=== PATIENT | male | born 1970 | race Caucasian/White ===

== ENCOUNTER 2018-04-08 08:41 | Inpatient (IN) ==
[2018-04-08] MEDS ORDERED: Sod Chloride 0.9% Inj 1,000 ML IV.SIG ONE (09:09)
[2018-04-08] MEDS ORDERED: Morphine Inj 4 MG/ML Vial IV.PUSH ONE ×2 (09:09→10:10)
--- NOTE | 2018-04-08 09:17 | ED ---
HPI General Chief Complaint: Abdominal Pain Stated Complaint: Abd Pain/Nausea Time Seen by Provider: 04/08/18 09:01 Source: patient Mode of arrival: ambulatory Limitations: no limitations History of Present Illness HPI narrative: She gives a history of approximately 5 days of ongoing abdominal crampy pain, nonradiating, intermittently varying in intensity, associated with nausea and some vomiting . The patient has a previous history of gout hypercholesterolemia hypertension and pancreatitis. MD complaint: abdominal pain Onset (ago): day(s) (5) Pain Consistency: intermittent Location: diffuse Severity: moderate Severity scale (1-10): 6 Quality: cramping Radiation: none Migration to: no migration Relieving factors: nothing Exacerbating factors: nothing Associated symptoms: nausea, vomiting and diarrhea Related Data Allergies Allergy/AdvReac Type Severity Reaction Status Date / Time No Known Allergies Allergy Unverified 04/08/18 09:14 Review of Systems ROS: all other systems reviewed are negative PMFSH History History Provided By: Patient Medical History Medical History Gout (Acute) HTN (hypertension) (Acute) High cholesterol (Acute) Pancreatitis (Acute) Surgical History Surgical History H/O oral surgery (Acute) History of ankle surgery (Acute) Social History Social History Smoking Status: Former smoker How Often Do You Have a Drink Containing Alcohol: 4 or more times a week Immunization History Tetanus Immunization: <5 Years Hx Influenza Vaccine This Season: No Exam Narrative Exam Narrative: GENERAL: Well-nourished, well-developed patient in no apparent distress. SKIN: Warm and dry. HEAD: Atraumatic. Normocephalic. EYES: Pupils equal and round. No scleral icterus. No injection or drainage. ENT: No nasal bleeding or discharge. Mucous membranes pink and moist. NECK: Trachea midline. No JVD. CARDIOVASCULAR: Regular rate and rhythm. no rubs or gallops RESPIRATORY: No accessory muscle use. Clear to auscultation. Breath sounds equal bilaterally. GASTROINTESTINAL: Abdomen mild ttp over ruq and epig region, nondistended. No rebound or guarding... Hyperactive bowel sounds MUSCULOSKELETAL: Extremities without clubbing, cyanosis, or edema. No obvious deformities. NEUROLOGICAL: Awake and alert. No obvious cranial nerve deficits. Motor grossly within normal limits. Five out of 5 muscle strength in the arms and legs. Normal speech. PSYCHIATRIC: Appropriate mood and affect; insight and judgment normal. Course Initial Documented Vital Signs Temperature 98.0 F 04/08/18 08:53 Pulse Rate 117 H 04/08/18 08:53 Respiratory Rate 18 04/08/18 08:53 Blood Pressure 229/152 H 04/08/18 08:53 Pulse Oximetry 97 04/08/18 08:53 Last Documented Vital Signs Temperature 98.0 F 04/08/18 08:53 Pulse Rate 106 H 04/08/18 10:09 Respiratory Rate 20 04/08/18 10:09 Blood Pressure 242/138 H 04/08/18 10:09 Pulse Oximetry 96 04/08/18 10:09 Critical Care Time Critical Care Time: Yes Total Critical Care Time: 30 Attestation: Aggregate critical care time was [-] minutes. Time to perform other separately billable procedures was not included in the critical care time. My time did not include minutes spent treating any other patients simultaneously or on activities that did not directly contribute to the patient's treatment. The services I provided to this patient were to treat and/or prevent clinically significant deterioration that could result in: [Patient severe hypertension in association with abdominal pain is suspicious for aneurysm versus dissection, these conditions required urgent evaluation-] I provided critical care services requiring my management, as noted below: Chart data review, documentation time, medication orders and management, vital sign assessments/reviewing monitor data, ordering and reviewing lab tests, ordering and interpreting/reviewing x-rays and diagnostic studies, care of the patient and discussion of the patient with the admitting physicians. Medical Decision Making MDM Narrative Medical Screen Exam Complete: Yes Emergency Medical Condition: Yes Differential Diagnosis Differential Diagnosis: Colitis versus diverticulitis versus AAA versus dissection of aorta versus pancreatitis versus hepatitis Medical Records Medical records reviewed: Yes I reviewed the patient's medical records. Lab Data Result diagrams: 04/08/18 09:15 04/08/18 09:15 Lab Results 04/08/18 04/08/18 04/08/18 Range/Units 09:15 09:15 09:20 WBC 8.6 (4.0-11.0) th/mm3 RBC 4.52 (4.50-5.90) mil/mm3 Hgb 18.1 H (13.0-17.0) gm/dL Hct 49.9 (39.0-51.0) % MCV 110.4 H (80.0-100.0) fL MCH 40.1 H (27.0-34.0) pg MCHC 36.4 H (32.0-36.0) % RDW 13.3 (11.6-17.2) % Plt Count 247 (150-450) th/mm3 MPV 8.2 (7.0-11.0) fL Prelim Diff (Auto) Slide review pending Neut % (Auto) 75.4 H (16.0-70.0) % Lymph % (Auto) 16.4 (9.0-44.0) % [place] % (Auto) 5.6 (0.0-8.0) % Eos % (Auto) 1.2 (0.0-4.0) % Baso % (Auto) 1.4 (0.0-2.0) % Neut # (Auto) 6.5 (1.8-7.7) th/mm3 Lymph # (Auto) 1.4 (1.0-4.8) th/mm3 [place] # (Auto) 0.5 (0.0-0.9) th/mm3 Eos # (Auto) 0.1 (0.0-0.4) th/mm3 Baso # (Auto) 0.1 (0.0-0.2) th/mm3 WBC Differential . Diff Scan Auto diff confirmed Differential Comment . Sodium 132 L (136-145) meq/L Potassium 3.7 (3.5-5.1) meq/L Chloride 97 L (98-107) meq/L Carbon Dioxide 23.0 (21.0-32.0) meq/L Anion Gap 12 (5-15) meq/L BUN 12 (7-18) mg/dL Creatinine 1.71 H (0.60-1.30) mg/dL Estimated GFR 43 L (>89) mL/min Random Glucose 181 H (74-106) mg/dL Calcium 9.2 (8.5-10.1) mg/dL Total Bilirubin 1.8 H (0.2-1.0) mg/dL AST 109 H (15-37) U/L ALT 80 H (12-78) U/L Alkaline Phosphatase 110 (45-117) U/L Total Creatine Kinase 608 H (39-308) U/L CK-MB (CK-2) 4.8 H (0.5-3.6) ng/mL CK-MB (CK-2) % 0.8 (0.0-4.0) % Troponin I 0.42 H (0.02-0.05) ng/mL Total Protein 8.9 H (6.4-8.2) g/dL Albumin 4.3 (3.4-5.0) g/dL Lipase 136 (73-393) U/L Urine Color Soni (Yellw/Straw) Urine Clarity Hazy H (Clear) Urine pH 5.0 (5.0-8.5) Ur Specific [place] 1.026 (1.002-1.035) Urine Protein 100 H (Neg-Trace) mg/dL Urine Glucose (UA) 50 (Negative) mg/dL Urine Ketones Negative (Negative) mg/dL Urine Occult Blood Small H (Negative) Urine Nitrate Negative (Negative) Urine Bilirubin Negative (Negative) Urine Urobilinogen 2.0 H (Less than 2) mg/dL Ur Leukocyte Esterase Negative (Negative) Urine RBC 1 (0-3) /hpf Urine WBC 3 (0-5) /hpf Ur Squamous Epith Cells 1 (0-5) /hpf Hyaline Casts 20 (0-3) /lpf Urine Mucus Many H (Occasional) /lpf Micro UA Comment Culture not ind Ur Microscopic Review Not Reportable Urine Culture Comments Culture not ind Imaging Data Radiologist's impression: Abdomen/Pelvis CT 04/08/18 09:09 CONCLUSION: 1. Numerous hepatic masses ranging in size from subcentimeter to up to 5 cm in diameter near the dome of the left side. Primary differential diagnosis is metastatic disease but cannot exclude complex cystic masses. There is also some questionable mural thickening of the greater curvature of the stomach. Further evaluation with MRI abdomen is recommended. 2. No adenopathy. No pelvic masses are identified. ECG Data EKG Prior to Arrival: No Attestation: I personally reviewed and interpreted this ECG as follows: Prior ECG tracings: not available for review Interpretation: Sinus tachycardia 103 bpm, left atrial enlargement, left ventricular hypertrophy pattern, no acute ST elevation [place] pattern, nonspecific ST-T wave changes noted Discharge Plan Discharge Disposition Patient Disposition: 30 Still Patient Discharge Condition Condition: Fair Discharge Details Diagnosis: Metastatic adenocarcinoma to liver with unknown primary site, Elevated troponin , Hypertensive emergency Physicians Team ED Provider: Reece Hu Primary Care Provider: Payton Curtis Status ED Status: With Doctor
[2018-04-08 09:36] LABS: Baso # (Auto) 0.1 th/mm3 (0.0-0.2); Baso % (Auto) 1.4 % (0.0-2.0); Eos # (Auto) 0.1 th/mm3 (0.0-0.4); Eos % (Auto) 1.2 % (0.0-4.0); Hematocrit 49.9 % (39.0-51.0); Hemoglobin 18.1 gm/dL (13.0-17.0); Lymph # (Auto) 1.4 th/mm3 (1.0-4.8); Lymph % (Auto) 16.4 % (9.0-44.0); Mean Corpuscular Hemoglobin 40.1 pg (27.0-34.0); Mean Corpuscular Volume 110.4 fL (80.0-100.0); Mean Platelet Volume 8.2 fL (7.0-11.0); Mono # (Auto) 0.5 th/mm3 (0.0-0.9); Mono % (Auto) 5.6 % (0.0-8.0); Neut # (Auto) 6.5 th/mm3 (1.8-7.7); Neut % (Auto) 75.4 % (16.0-70.0); Platelet Count 247 th/mm3 (150-450); Red Blood Count 4.52 mil/mm3 (4.50-5.90); Red Cell Distribution Width 13.3 % (11.6-17.2); White Blood Count 8.6 th/mm3 (4.0-11.0)
[2018-04-08 09:43] LABS: Mean Corpuscular HGB Conc 36.4 % (32.0-36.0)
[2018-04-08 09:45] LABS: Bilirubin,Urine Negative (Negative); Clarity,Urine Hazy (Clear); Color,Urine Amber (Yellw/Straw); Glucose,Urine (UA) 50 mg/dL (Negative); Hyaline Casts,Urine 20 /lpf (0-3); Leukocyte Esterase,Urine Negative (Negative); Mucus,Urine Many /lpf (Occasional); Nitrite,Urine Negative (Negative); Specific Gravity,Urine 1.026 (1.002-1.035); Squamous Epithelial Cell,Urine 1 /hpf (0-5)
[2018-04-08 09:54] LABS: Alanine Aminotransferase 80 U/L (12-78)
[2018-04-08 09:58] LABS: Alkaline Phosphatase 110 U/L (45-117); Creatine Kinase 608 U/L (39-308); Total Protein 8.9 g/dL (6.4-8.2); Troponin I 0.42 ng/mL (0.02-0.05)
[2018-04-08 10:10] LABS: CKMB Percent 0.8 % (0.0-4.0); Creatine Kinase MB 4.8 ng/mL (0.5-3.6)
[2018-04-08] MEDS ORDERED: Nitroglycerin Drip Premix 50 MG/250 ML BOTTLE IV.CONT PRN ×2 (10:16→10:17)
--- NOTE | 2018-04-08 10:19 | CT ---
EXAM DATE: 04/08/2018 10:01 AM EDT AGE/SEX: 48 years / Male INDICATIONS: Diffuse abdominal pain, nausea and vomiting x 5 days. CLINICAL DATA: This is the patient's initial encounter. Patient reports that signs and symptoms have been present for 4 - 6 days and indicates a pain score of 5/10. MEDICAL/SURGICAL HISTORY: Hypertension. Pancreatitis. None. RADIATION DOSE: 8.38 CTDI (mGy) COMPARISON: No prior exams available for comparison. TECHNIQUE: Multiple contiguous axial images were obtained through the abdomen. Images were obtained using multiple row detector helical technique. Using automated exposure control and adjustment of the mA and/or kV according to patient size, radiation dose was kept as low as reasonably achievable to o btain optimal diagnostic quality images. DICOM format image data is available electronically for rev iew and comparison. FINDINGS: The lung bases are clear. There are numerous masses within the liver which are suspicious for metastatic disease although compl ex cysts could have a similar appearance. There is no prior study for comparison. The spleen, adrenals, kidneys and pancreas unremarkable. No calcified gallstones or biliary ductal di latation. There is some questionable thickening of the greater curvature of the stomach although the stomach is not distended. No pelvic masses or free fluid. Colonic diverticula noted without diverticulitis. Moderate degenerative disc disease at the lumbosacral junction with bilateral bony foraminal stenosis . CONCLUSION: 1. Numerous hepatic masses ranging in size from subcentimeter to up to 5 cm in diameter near the dom e of the left side. Primary differential diagnosis is metastatic disease but cannot exclude complex c ystic masses. There is also some questionable mural thickening of the greater curvature of the stomac h. Further evaluation with MRI abdomen is recommended. 2. No adenopathy. No pelvic masses are identified. Electronically signed by: Stephan Thurston MD 04/08/2018 10:18 AM EDT
[2018-04-08 10:30] LABS: Albumin 4.3 g/dL (3.4-5.0); Anion Gap 12 meq/L (5-15); Aspartate Aminotransferase 109 U/L (15-37); Blood Urea Nitrogen 12 mg/dL (7-18); Calcium 9.2 mg/dL (8.5-10.1); Chloride 97 meq/L (98-107); Glomerular Filtration Rate 43 mL/min (>89); Glucose,Random 181 mg/dL (74-106); Lipase 136 U/L (73-393); Potassium 3.7 meq/L (3.5-5.1); Sodium 132 meq/L (136-145)
[2018-04-08] MEDS ORDERED: Labetalol HCl Inj 100 MG/20 ML Vial IV.PUSH STA (11:45)
[2018-04-08] MEDS ORDERED: Sodium Chloride 0.9% 2 ML Flush PRN IV.FLUSH (11:52)
[2018-04-08] MEDS ORDERED: *Labetalol HCl Inj 100 MG/20 ML Vial PERIprocedural Use ONLY IV.PUSH PRN (12:16)
[2018-04-08] MEDS ORDERED: hydrALAZINE HCl Inj 20 MG/ML Vial IV.PUSH PRN (12:16)
[2018-04-08] MEDS: HYDROmorphone PF Inj 2 MG/ML Vial IV.PUSH PRN ×3 (12:31→21:45)
[2018-04-08] MEDS ORDERED: *Labetalol HCl Inj 100 MG/20 ML Vial PERIprocedural Use ONLY IV.PUSH ONE (13:00)
[2018-04-08 13:34] LABS: Activated Partial Thrombo Time 27.1 sec (24.3-30.1); INR 1.1 Ratio
[2018-04-08] MEDS ORDERED: fentaNYL Citrate Inj 250 MCG/5 ML Ampul ONE (14:03)
--- NOTE | 2018-04-08 14:55 | P.RAD ---
Post Procedure Progress Note - Pre Procedure Diagnosis (1) Liver masses - Post Procedure Diagnosis (1) Liver masses - Procedure Information Procedure Date: 04/08/18 Supervising Radiologist: Dez Hameed MD Estimated blood loss (mL): 0 Anesthesia: Local, Conscious Sedation - Plan of Activity Patient to Unit: ROPU Patient Condition: Fair Additional Comments: CT guided biopsy of the liver preformed. Lesion in the right lobe targeted. Pt. tolerated the procedure well. See PACS Report for procedural detail/treatment.
--- NOTE | 2018-04-08 15:17 | CT ---
EXAM DATE: 04/08/2018 1:08 PM EDT AGE/SEX: 48 years / Male INDICATIONS: Liver biopsy for mass. CLINICAL DATA: This is the patient's initial encounter. Patient reports that signs and symptoms have been present for 1 day and indicates a pain score of 0/10. MEDICAL/SURGICAL HISTORY: Hypercholesterolemia. Hypertension. Pancreatitis. None. COMPARISON: [facility] – [place], CT ABDOMEN & PELVIS W/O CONTRAST, 04/08/2018. . SEDATION TIME (min): 30 BIOPSY SITE: . liver MEDICATION(S): 5.5mg midazolam (Versed) IV 200mcg fentanyl (Sublimaze) IV DEVICE(S): 18 gauge Temno core biopsy needle One core specimen(s) sent to the laboratory for pathologic evaluation. PROCEDURE: CT guided . liver biopsy Conscious sedation with continuous EKG and oximetry monitoring. Prior to the procedure informed consent was obtained. Any appropriate prior imaging studies were rev iewed. Using automated exposure control and adjustment of the mA and/or kV according to patient size, radiat ion dose was kept as low as reasonably achievable to obtain optimal diagnostic quality images. DICOM format image data is available electronically for review and comparison. The site was prepped in a sterile fashion. Full sterile technique was used, including cap, mask, gloria rile gloves and gown and a large sterile sheet. Hand hygiene and 2% chlorhexidine and/or betadine/al cohol prep was utilized per protocol for cutaneous antisepsis. The skin and subcutaneous tissues wer e infiltrated with local anesthetic solution. With CT guidance a suitable target was localized. Biopsy was performed using an 18-gauge core needle as above. Adequate hemostasis was obtained with compression at the puncture site. Follow-up CT scan reveals no hemorrhage. The patient tolerated the procedure well and there were no complications. The patient was returned to the Radiology Outpatient Unit in stable condition. CONCLUSION: 1. Uncomplicated CT guided biopsy. Electronically signed by: Dez Hameed MD 04/08/2018 3:16 PM EDT
[2018-04-08] MEDS: Sod Chloride 0.9% Inj 1,000 ML IV.CONT SCH (16:54)
--- NOTE | 2018-04-08 17:02 | P.HPCC ---
History of Present Illness Service: Critical Care Medicine Primary Care Physician: Payton Curtis Chief Complaint: nausea/vomiting History of Present Illness: 48yM with history of hypertension who presents with n/v/abd pain x 5 days. no hematemesis or hematochesia. in ER found to have sbp > 250. denies current chest pain, shortness of breath, fever, chills. On my evaluation he remained significantly hypertensive. I remained at bedside while he was given iv labetalol and iv hydralazine and his bp improved to 160s systolic. CT abd/ pelvis demonstrates multiple liver masses. Cr elevated. AST/ALT elevated. trop slightly elevated at 0.4. EKG no st-t-wave changes. remainder ROS unremarkable. Inpatient Certification: I certify that the inpatient services were ordered in accordance with Medicare regulations governing the order. This includes certification that hospital inpatient services are reasonable and necessary and in the case of services not specified as inpatient-only under 42 CFR 419.22(n), that they are appropriately provided as inpatient services in accordance to with the 2-midnight benchmark under 43 CFR 412.3(e) Estimated Total Length of Stay (Days): 7 Plans for Post Hospital Care: Not yet determined Review of Systems All other systems reviewed negative except as stated in HPI PMFSH - History History Provided By: Patient - Medical History Medical History: Medical History (Last Reviewed 04/08/18 @ 16:49 by Yoel Rob MD) Gout HTN (hypertension) High cholesterol Pancreatitis - Surgical History Surgical History: Surgical History (Last Reviewed 04/08/18 @ 16:49 by Yoel Rob MD) H/O oral surgery History of ankle surgery - Family History Family History: Family History (Last Updated 04/08/18 @ 16:49 by Yoel Rob MD) Other Family history non-contributory - Social History I have reviewed the patient's Social History: Yes - Tobacco History Smoking Status: Current every day smoker Tobacco Type: Cigarettes Packs Per Day: 2 - Alcohol History How Often Do You Have a Drink Containing Alcohol: 4 or more times a week - Substance Use History Substance History: No History of Abuse - Immunization History Tetanus Immunization: <5 Years Hx Influenza Vaccine This Season: No Medications and Allergies Active Medications: Active Medications Hydralazine HCl (Apresoline) 100 mg PO Q8H JABARI Last Admin: 04/08/18 12:31 Dose: 100 mg Hydralazine HCl (Apresoline Inj) 20 mg IV.PUSH Q30M PRN PRN Reason: sbp > 180 Hydromorphone HCl (Dilaudid Pf Inj) 0.5 mg IV.PUSH Q4H PRN PRN Reason: pain 8-10 or not taking po Last Admin: 04/08/18 12:31 Dose: 0.5 mg Nitroglycerin/Dextrose (Nitroglycerin Drip Premix) 50 mg in 250 mls @ 1.5 mls/ hr IV.CONT TITRATE PRN; Protocol PRN Reason: See Protocol Last Titration: 04/08/18 12:35 Dose: 0 mcg/min, 0 mls/hr Labetalol HCl (*Trandate Inj Periprocedural Use Only) 20 mg IV.PUSH Q1H PRN PRN Reason: sbp > 180, hold for HR < 60 Labetalol HCl (Trandate) 300 mg PO Q8H [facility] Last Admin: 04/08/18 13:55 Dose: Not Given Sodium Chloride (Ns Flush) 2 ml IV.FLUSH BID JABARI Sodium Chloride (Ns Flush) 2 ml IV.FLUSH PRN PRN PRN Reason: FLUSH AFTER USING IV ACCESS Allergies Allergy/AdvReac Type Severity Reaction Status Date / Time No Known Allergies Allergy Unverified 04/08/18 09:14 Home Medications Medication Instructions Recorded Confirmed Type atorvastatin 20 mg PO DAILY 04/08/18 04/08/18 History colchicine [Colcrys] 0.6 mg PO BID 04/08/18 04/08/18 History escitalopram oxalate 10 mg PO DAILY 04/08/18 04/08/18 History hydrochlorothiazide 25 mg PO DAILY 04/08/18 04/08/18 History lisinopril 20 mg PO DAILY 04/08/18 04/08/18 History Results - Labs CBC & Chem 7: 04/08/18 09:15 04/08/18 09:15 Labs: Short CBC 04/08/18 Range/Units 09:15 WBC 8.6 (4.0-11.0) th/mm3 Hgb 18.1 H (13.0-17.0) gm/dL Hct 49.9 (39.0-51.0) % Plt Count 247 (150-450) th/mm3 [facility] 04/08/18 09:15 Sodium 132 L Potassium 3.7 Chloride 97 L Carbon Dioxide 23.0 BUN 12 Creatinine 1.71 H Calcium 9.2 Cardiac Enzymes 04/08/18 Range/Units 09:15 Total Creatine Kinase 608 H (39-308) U/L CK-MB (CK-2) 4.8 H (0.5-3.6) ng/mL Troponin I 0.42 H (0.02-0.05) ng/mL Liver Function 04/08/18 Range/Units 09:15 Total Bilirubin 1.8 H (0.2-1.0) mg/dL AST 109 H (15-37) U/L ALT 80 H (12-78) U/L Alkaline Phosphatase 110 (45-117) U/L Albumin 4.3 (3.4-5.0) g/dL Urine 04/08/18 Range/Units 09:20 Urine Color Son[place] (Yellw/Straw) Urine Clarity Hazy H (Clear) Urine pH 5.0 (5.0-8.5) Ur Specific [place] 1.026 (1.002-1.035) Urine Protein 100 H (Neg-Trace) mg/dL Urine Glucose (UA) 50 (Negative) mg/dL - Imaging Impressions Liver Biopsy CT 04/08/18 00:[address] CONCLUSION: [address] Uncom[address] CT guided biopsy. Abdomen/Pelvis CT 04/08/18 09:09 CONCLUSION: 1. Numerous hepatic masses ranging in size from subcentimeter to up to 5 cm in diameter near the dome of the left side. Primary differential diagnosis is metastatic disease but cannot exclude complex cystic masses. There is also some questionable mural thickening of the greater curvature of the stomach. Further evaluation with MRI abdomen is recommended. 2. No adenopathy. No pelvic masses are identified. Exam Vital signs: Vital Signs 04/08/18 08:53 04/08/18 09:14 04/08/18 10:09 Temperature 36.7 C Pulse Rate 117 H 108 H 106 H Respiratory Rate 18 20 20 Blood Pressure 229/152 H 253/156 H 242/138 H Pulse Oximetry 97 96 96 04/08/18 11:41 04/08/18 11:55 04/08/18 12:00 Temperature Pulse Rate 91 H 77 78 Respiratory Rate 20 19 20 Blood Pressure 227/127 H 204/114 H 180/18 H Pulse Oximetry 96 96 95 04/08/18 12:07 04/08/18 12:33 04/08/18 13:06 Temperature Pulse Rate 78 78 73 Respiratory Rate 20 18 16 Blood Pressure 162/90 H 121/73 151/91 H Pulse Oximetry 97 95 95 04/08/18 14:22 04/08/18 15:00 04/08/18 16:00 Temperature 36.7 C Pulse Rate 82 74 Respiratory Rate 20 18 Blood Pressure 111/82 Pulse Oximetry 96 04/08/18 16:43 Temperature Pulse Rate 70 Respiratory Rate Blood Pressure Pulse Oximetry Intake & Output 04/07/18 04/08/18 04/08/18 18:59 06:59 18:59 Intake Total 1100 / 1100 Balance 1100 / 1100 Weight 96.162 kg Intake: IV 1000 / 1000 NS Inj 1,000 ML @ Wide Open IV. 1000 / 1000 SIG BOLUS ONE Rx#:[id number] Oral 100 / 100 Narrative: gen: middle-aged male, lying in bed, no acute distress. heent: nc. at. perrl. mmm. neck: no jvd. trachea midline. chest: unlabored. room air. equal chest rise. abd: soft, tender in the RUQ, nondistended. no guarding. extr: no edema. distal pulses 2+. neuro: RASS 0. GCS 15. follows commands. no focal deficits. Caprini VTE Risk Assessment Caprini VTE Risk Assessment: Moderate/High Risk (score >= 2) Caprini Risk Assessment Model: Point Value = 1 Point Value = 2 Point Value = 3 Point Value = 5 Age 41-60 Minor surgery BMI > 25 kg/m2 Swollen legs Varicose veins or History of unexplained or recurrent spontaneous Oral contraceptives or hormone replacement Sepsis (< 1 month) Serious lung disease, including pneumonia (< 1 month) Abnormal pulmonary function Acute myocardial infarction Congestive heart failure (< 1 month) History of inflammatory bowel disease Medical patient at bed rest Age 61-74 Arthroscopic surgery Major open surgery (> 45 min) Laparoscopic surgery (> 45 min) Malignancy Confined to bed (> 72 hours) Immobilizing plaster cast Central venous access Age >= 75 History of VTE Family history of VTE Factor V Leiden Prothrombin [id number] Lupus anticoagulant Anticardiolipin antibodies Elevated serum homocysteine Heparin-induced thrombocytopenia Other congenital or acquired thrombophilia Stroke (< 1 month) Elective arthroplasty Hip, pelvis, or leg fracture Acute spinal cord injury (< 1 month) Prophylaxis Regimen: Total Risk Factor Score Risk Level Prophylaxis Regimen 0-1 Low Early ambulation 2 Moderate Order ONE of the following: *Sequential Compression Device (SCD) *Heparin 5000 units SQ BID 3-4 Higher Order ONE of the following medications: *Heparin 5000 units SQ TID *Enoxaparin/Lovenox 40 mg SQ daily (WT < 150 kg, CrCl > 30 mL/min) *Enoxaparin/Lovenox 30 mg SQ daily (WT < 150 kg, CrCl > 10-29 mL/min) *Enoxaparin/Lovenox 30 mg SQ BID (WT < 150 kg, CrCl > 30 mL/min) AND/OR *Sequential Compression Device (SCD) 5 or more Highest Order ONE of the following medications: *Heparin 5000 units SQ TID (Preferred with Epidurals) *Enoxaparin/Lovenox 40 mg SQ daily (WT < 150 kg, CrCl > 30 mL/min) *Enoxaparin/Lovenox 30 mg SQ daily (WT < 150 kg, CrCl > 10-29 mL/min) *Enoxaparin/Lovenox 30 mg SQ BID (WT < 150 kg, CrCl > 30 mL/min) AND *Sequential Compression Device (SCD) Assessment and Plan - Assessment and Plan Plan: Assessment: 48yM with new diagnosis of liver masses and hypertensive urgency. admit to step-down unit for close blood pressure control. have discussed with radiology and will pursue liver biopsy. Hypertensive Urgency start labetalol 300mg po q8h start hydralazine 100mg po q8h prn labetalol and hydralazine iv goal sbp < 180 Type II NSTEMI secondary to demand ischemia Elevated troponin - no symptoms concerning for ACS - no heparinization or ASA given plan for liver biopsy - cardiology consult - will likely need outpatient stress test - risk factors: tob use, HTN Liver masses - CT guided biopsy - if comes back malignant, will need staging CT chest/abd/pelvis - will hold on oncology consult until biopsy returns. likely can be outpatient work-up. Acute kidney injury - likely secondary to hypertensive urgency and may be related to dehydration from poor po intake - ns @ 84 cc/hr - daily bmp Dehydration - mivf Nausea/Vomiting - secondary to liver capsule streching - prn zofran Abdominal pain - secondary to liver masses - dilaudid 0.5 mg iv q4h prn Tobacco abuse - counseled on cessation. consult hospitalist to assume care.
--- NOTE | 2018-04-08 17:40 | ECG ---
Date Performed: 04/08/2018 Time Performed: 09:29:14 PTAGE: 48 years EKG: SINUS TACHYCARDIA POSSIBLE LEFT ATRIAL ENLARGEMENT LEFT VENTRICULAR HYPERTROPHY NONSPECIFIC ST & T-WAVE ABNORMALITY ABNORMAL ECG NO PREVIOUS TRACING DOCTOR: Josh Engel Interpretating Date/Time 04/08/2018 18:13:20
--- NOTE | 2018-04-08 19:58 | MB ---
cc: Tc Lynne MD DATE: 04/08/2018 REASON FOR CONSULTATION: Evaluation of elevated troponin. HISTORY OF PRESENT ILLNESS: Hardeep Buchanan is a 48-year-old man who says he has had hypertension for 15 years. He admits that he takes his medicines erratically. He presented to his primary care physician last week for a tooth infection. He has not seen a dentist yet. He got put on antibiotic and never started it. Blood pressure was very high when he went there, but he was taking Naprosyn and they thought that might have something to do with it. He comes in now for crampy abdominal pain, difficulty keeping any food down with nausea and vomiting for the past 5 days[address] He got a CT scan showing significant abnormal liver findings on a liver biopsy done today. His troponin is mildly elevated. He does have some intermittent chest discomfort, like a tightness that lasted for 10 seconds at a time, nothing longer. He has noticed some slightly increased shortness of breath over the last couple of months. Nothing acute. I really cannot elicit any symptoms that sound like a myocardial infarction. He has not vomited any blood. He has been treated so far with labetalol and hydralazine to bring his blood pressure down. PAST MEDICAL HISTORY: Includes gout, hypercholesterolemia, hypertension, pancreatitis. PAST SURGICAL HISTORY: Includes ankle surgery and oral surgery. SOCIAL HISTORY: Notable for longstanding smoking greater than a pack a day. He drinks alcohol, moderate to heavy as well. FAMILY HISTORY: Significant in that his father had bypass surgery. Mother was unhealthy, but cannot remember specifics on her illness. REVIEW OF SYSTEMS: Otherwise negative. PHYSICAL EXAMINATION: GENERAL: Well-developed, well-nourished man, does not appear to be in acute distress. He is somewhat mar[place] in complexion, vitals are charted. He was high as 229/152. HEENT: Unremarkable. NECK: Negative for bruits. No JVD. CHEST: Lungs are clear to auscultation. CARDIOVASCULAR: S1, S2, regular rate and rhythm. I could not appreciate murmur or gallop. ABDOMEN: Shows some mild right upper quadrant tenderness. EXTREMITIES: No clubbing, cyanosis or edema. Pulses are intact. EKG shows sinus rhythm with left ventricular hypertrophy, nonspecific T-wave abnormality. CT scan is markedly abnormal with liver masses as described above. LABORATORY DATA: Labs are abnormal. Hematocrit is 49.9 with MCV elevated at 110. BUN is 12 with a creatinine elevated at 1.71. His liver tests are elevated, troponins 0.42. Bilirubin is 1.8. Alkaline phosphatase 110, AST 109, ALT 80. IMPRESSION: 1. Hypertensive crisis has been controlled now with labetalol and hydralazine. Hypertension is longstanding and poorly controlled. The patient has been noncompliant with medication treatment. 2. Elevated troponin. He has got a family history. He smokes and has hypertension, but really has no symptoms to suggest acute coronary syndrome. Suspect elevated troponin may be from his left ventricular hypertrophy and hypertension. I would not diagnose this as an infarct at this point. 3. Liver masses. Workup underway for possible metastatic cancer. RECOMMENDATIONS: We will order a 2-D echo Doppler study. We will hold off adding an ENRIKE or ARB because of elevated creatinine. Amlodipine might be something we can add if he needs it beyond what he is on now. Further therapy to be determined. MD FERNIE Mcarthur/miguelangel , 05:44 PM , 05:54 PM
[2018-04-08] MEDS: Heparin - SQ 10,000 UNITS/ML Vial SQ SCH (21:45)
[2018-04-08] MEDS: Sodium Chloride 0.9% 2 ML Flush BID IV.FLUSH SCH (21:54)
[2018-04-09] MEDS: HYDROmorphone PF Inj 2 MG/ML Vial IV.PUSH PRN ×4 (03:04→21:05)
[2018-04-09] MEDS ORDERED: Dextrose 50% in Water 50 ML Vial IV.PUSH PRN (03:13)
[2018-04-09 04:15] LABS: Baso % (Auto) 0.8 % (0.0-2.0); Eos # (Auto) 0.1 th/mm3 (0.0-0.4); Eos % (Auto) 1.5 % (0.0-4.0); Hematocrit 40.9 % (39.0-51.0); Hemoglobin 14.5 gm/dL (13.0-17.0); Lymph # (Auto) 1.6 th/mm3 (1.0-4.8); Lymph % (Auto) 26.3 % (9.0-44.0); Mean Corpuscular HGB Conc 35.5 % (32.0-36.0); Mean Corpuscular Hemoglobin 40.2 pg (27.0-34.0); Mean Corpuscular Volume 113.4 fL (80.0-100.0); Mean Platelet Volume 8.2 fL (7.0-11.0); Mono # (Auto) 0.3 th/mm3 (0.0-0.9); Mono % (Auto) 5.3 % (0.0-8.0); Neut % (Auto) 66.1 % (16.0-70.0); Platelet Count 174 th/mm3 (150-450); Red Blood Count 3.61 mil/mm3 (4.50-5.90); Red Cell Distribution Width 13.4 % (11.6-17.2)
[2018-04-09 04:42] LABS: Alanine Aminotransferase 56 U/L (12-78); Albumin 3.4 g/dL (3.4-5.0); Alkaline Phosphatase 87 U/L (45-117); Anion Gap 12 meq/L (5-15); Aspartate Aminotransferase 62 U/L (15-37); Blood Urea Nitrogen 11 mg/dL (7-18); Carbon Dioxide 23.8 meq/L (21.0-32.0); Chloride 97 meq/L (98-107); Glomerular Filtration Rate 48 mL/min (>89); Glucose,Random 120 mg/dL (74-106); Magnesium 1.3 mg/dL (1.5-2.5); Phosphorus 2.9 mg/dL (2.5-4.9); Potassium 3.1 meq/L (3.5-5.1); Sodium 133 meq/L (136-145); Total Protein 7.2 g/dL (6.4-8.2); Troponin I 0.27 ng/mL (0.02-0.05)
[2018-04-09] MEDS: Sod Chloride 0.9% Inj 1,000 ML IV.CONT SCH ×3 (05:05→21:11)
[2018-04-09] MEDS: Heparin - SQ 10,000 UNITS/ML Vial SQ SCH ×3 (05:25→21:07)
[2018-04-09] MEDS: Sodium Chloride 0.9% 2 ML Flush BID IV.FLUSH SCH ×2 (08:58→21:07)
[2018-04-09] MEDS: Insulin NovoLOG Aspart Correctional Sugar Inj SQ SCH ×4 (08:59→21:06)
[2018-04-09] MEDS ORDERED: predniSONE 20 MG Tablet PO SCH (09:00)
--- NOTE | 2018-04-09 09:35 | P.PNCA ---
Subjective Interval history: No angina. RUQ pain Medications and Allergies Active Medications: Active Medications Albuterol (Duoneb Neb (Prn)) 1 ampul NEB Q2HR NEB PRN PRN Reason: WHEEZING Amlodipine Besylate (Norvasc) 5 mg PO DAILY [facility] Colchicine (Colcrys) 0.6 mg PO BID [facility] Dextrose (D50w Vial) 50 ml IV.PUSH UNSCH PRN PRN Reason: PER HYPOGLYCEMIA PROTOCOL Glucagon (Glucagon Inj) 1 mg OTHER PRN PRN PRN Reason: for Hypoglycemia Protocol Heparin Sodium (Porcine) (Heparin Inj) 5,000 units SQ Q8HR [facility] Last Admin: 04/09/18 05:25 Dose: 5,000 units Hydralazine HCl (Apresoline) 100 mg PO Q8H [facility] Last Admin: 04/09/18 05:25 Dose: 100 mg Hydralazine HCl (Apresoline Inj) 20 mg IV.PUSH Q30M PRN PRN Reason: sbp > 180 Hydromorphone HCl (Dilaudid Pf Inj) 0.5 mg IV.PUSH Q4H PRN PRN Reason: pain 8-10 or not taking po Last Admin: 04/09/18 07:26 Dose: 0.5 mg Nitroglycerin/Dextrose (Nitroglycerin Drip Premix) 50 mg in 250 mls @ 1.5 mls/ hr IV.CONT TITRATE PRN; Protocol PRN Reason: See Protocol Last Titration: 04/08/18 12:35 Dose: 0 mcg/min, 0 mls/hr Sodium Chloride (Ns Inj) 1,000 mls @ 84 mls/hr IV.CONT .[id number] [facility] Last Admin: 04/09/18 05:05 Dose: 84 mls/hr Magnesium Sulfate/Dextrose (Magnesium Sulfate 1 Gm/D5w 100 Ml Premix) 100 mls @ 100 mls/hr IV.SIG Q1H [facility] Stop: 04/09/18 11:59 Insulin Aspart (Novolog Insulin Correctional Sugar Inj) 0 unit SQ ACHS [facility]; Protocol Last Admin: 04/09/18 08:59 Dose: Not Given Labetalol HCl (*Trandate Inj Periprocedural Use Only) 20 mg IV.PUSH Q1H PRN PRN Reason: sbp > 180, hold for HR < 60 Labetalol HCl (Trandate) 300 mg PO Q8H [facility] Last Admin: 04/09/18 05:25 Dose: 300 mg Ondansetron HCl (Zofran Inj) 4 mg IV.PUSH Q6H PRN PRN Reason: NAUSEA OR VOMITING Prednisone (Deltasone) 20 mg PO DAILY [facility] Last Admin: 04/09/18 08:58 Dose: 20 mg Sodium Chloride (Ns Flush) 2 ml IV.FLUSH BID [facility] Last Admin: 04/09/18 08:58 Dose: Not Given Sodium Chloride (Ns Flush) 2 ml IV.FLUSH PRN PRN PRN Reason: FLUSH AFTER USING IV ACCESS Allergies Allergy/AdvReac Type Severity Reaction Status Date / Time No Known Allergies Allergy Unverified 04/08/18 09:14 Home Medications Medication Instructions Recorded Confirmed Type atorvastatin 20 mg PO DAILY 04/08/18 04/08/18 History colchicine [Colcrys] 0.6 mg PO BID 04/08/18 04/08/18 History escitalopram oxalate 10 mg PO DAILY 04/08/18 04/08/18 History hydrochlorothiazide 25 mg PO DAILY 04/08/18 04/08/18 History lisinopril 20 mg PO DAILY 04/08/18 04/08/18 History Physical Exam Vital signs: Vital Signs 04/08/18 10:09 04/08/18 11:41 04/08/18 11:55 Temperature Pulse Rate 106 H 91 H 77 Respiratory Rate 20 20 19 Blood Pressure 242/138 H 227/127 H 204/114 H Pulse Oximetry 96 96 96 04/08/18 12:00 04/08/18 12:07 04/08/18 12:33 Temperature Pulse Rate 78 78 78 Respiratory Rate 20 20 18 Blood Pressure 180/18 H 162/90 H 121/73 Pulse Oximetry 95 97 95 04/08/18 13:06 04/08/18 14:22 04/08/18 15:00 Temperature 98.1 F Pulse Rate 73 82 Respiratory Rate 16 20 18 Blood Pressure 151/91 H 111/82 Pulse Oximetry 95 96 04/08/18 16:00 04/08/18 16:43 04/08/18 17:13 Temperature Pulse Rate 74 70 68 Respiratory Rate Blood Pressure Pulse Oximetry 04/08/18 19:00 04/08/18 20:00 04/08/18 21:00 Temperature 97.9 F Pulse Rate 74 70 75 Respiratory Rate 16 Blood Pressure 166/96 H Pulse Oximetry 95 04/08/18 22:00 04/08/18 23:00 04/09/18 00:00 Temperature 98 F Pulse Rate 79 84 71 Respiratory Rate 16 Blood Pressure 130/74 Pulse Oximetry 95 04/09/18 01:00 04/09/18 02:00 04/09/18 03:00 Temperature 97.9 F Pulse Rate 76 76 84 Respiratory Rate 16 Blood Pressure 161/83 H Pulse Oximetry 95 04/09/18 03:10 04/09/18 04:00 04/09/18 05:00 Temperature Pulse Rate 82 82 Respiratory Rate Blood Pressure Pulse Oximetry 96 04/09/18 06:00 04/09/18 07:00 04/09/18 08:00 Temperature 97.8 F Pulse Rate 81 78 77 Respiratory Rate 16 Blood Pressure 141/80 H Pulse Oximetry Intake & Output 04/08/18 04/09/18 04/09/18 18:59 06:59 18:59 Intake Total 1100 / 1100 1720 / 1720 Output Total 125 / 125 Balance 1100 / 1100 1595 / 1595 Weight 96.162 kg 99.5 kg Intake: IV 1000 / 1000 1000 / 1000 NS Inj 1,000 ML @ 84 mls/hr IV. 1000 / 1000 CONT .[id number] [facility] Rx#:[id number] NS Inj 1,000 ML @ Wide Open IV. 1000 / 1000 SIG BOLUS ONE Rx#:[id number] Oral 100 / 100 720 / 720 Output: Urine 125 / 125 Other: # Voids 3 - Constitutional no acute distress - Routine HEENT Exam Head: Present: normocephalic, atraumatic - Routine Neck Exam Absent: JVD - Routine Respiratory Exam Present: CTA bilaterally. Absent: accessory muscle use - Routine Cardiovascular Exam Present: RRR, S1, S2 - Routine Abdominal Exam Comments: mild RUQ tenderness - Routine Extremities Exam Absent: cyanosis, clubbing, edema Results 04/09/18 02:52 04/09/18 02:52 Cardiac Enzymes 04/08/18 04/08/18 04/09/18 Range/Units 09:15 18:04 02:52 AST 109 H 62 H (15-37) U/L CK-MB (CK-2) 4.8 H (0.5-3.6) ng/mL Troponin I 0.42 H 0.33 H 0.27 H (0.02-0.05) ng/mL Coagulation 04/08/18 Range/Units 12:45 PT 11.0 (9.8-11.6) sec APTT 27.1 (24.3-30.1) sec CBC 04/08/18 04/09/18 Range/Units 09:15 02:52 WBC 8.6 6.0 (4.0-11.0) th/mm3 RBC 4.52 3.61 L (4.50-5.90) mil/mm3 Hgb 18.1 H 14.5 D (13.0-17.0) gm/dL Hct 49.9 40.9 (39.0-51.0) % Plt Count 247 174 (150-450) th/mm3 Neut # (Auto) 6.5 4.0 (1.8-7.7) th/mm3 Lymph # (Auto) 1.4 1.6 (1.0-4.8) th/mm3 [place] # (Auto) 0.5 0.3 (0.0-0.9) th/mm3 Eos # (Auto) 0.1 0.1 (0.0-0.4) th/mm3 Baso # (Auto) 0.1 0.0 (0.0-0.2) th/mm3 Comprehensive Metabolic Panel 04/08/18 04/09/18 Range/Units 09:15 02:52 Sodium 132 L 133 L (136-145) meq/L Potassium 3.7 3.1 L (3.5-5.1) meq/L Chloride 97 L 97 L (98-107) meq/L Carbon Dioxide 23.0 23.8 (21.0-32.0) meq/L BUN 12 11 (7-18) mg/dL Creatinine 1.71 H 1.56 H (0.60-1.30) mg/dL Calcium 9.2 8.0 L D (8.5-10.1) mg/dL AST 109 H 62 H (15-37) U/L ALT 80 H 56 (12-78) U/L Alkaline Phosphatase 110 87 (45-117) U/L Total Protein 8.9 H 7.2 D (6.4-8.2) g/dL Albumin 4.3 3.4 D (3.4-5.0) g/dL Intake and Output 04/08/18 04/09/18 04/09/18 22:59 06:59 14:59 Intake Total 100 / 100 1720 / 1720 Output Total 125 / 125 Balance 100 / 100 1595 / 1595 Intake: IV 1000 / 1000 NS Inj 1,000 ML @ 84 mls/hr IV. 1000 / 1000 CONT .[id number] [facility] Rx#:[id number] Oral 100 / 100 720 / 720 Output: Urine 125 / 125 Other: # Voids 3 Weight 99.5 kg - Imaging and Cardiology Imaging: Impressions Liver Biopsy CT 04/08/18 00:00 CONCLUSION: 1. Uncomplicated CT guided biopsy. Abdomen/Pelvis CT 04/08/18 09:09 CONCLUSION: 1. Numerous hepatic masses ranging in size from subcentimeter to up to 5 cm in diameter near the dome of the left side. Primary differential diagnosis is metastatic disease but cannot exclude complex cystic masses. There is also some questionable mural thickening of the greater curvature of the stomach. Further evaluation with MRI abdomen is recommended. 2. No adenopathy. No pelvic masses are identified. Assessment and Plan - Assessment (1) Elevated troponin Code(s): R74.8 - Abnormal levels of other serum enzymes Status: Acute (2) Hypertensive emergency Code(s): I16.1 - Hypertensive emergency Status: Acute (3) Liver masses Code(s): R16.0 - Hepatomegaly, not elsewhere classified Status: Acute - Plan BP improved but required IV hydralazine this AM so I am adding PO amlodipine. Increased troponin prob secondary to HTN and is coming down. Await liver biopsy results
[2018-04-09] MEDS: Mag Sulf 1 gm/100 ml Premix 100 ML IV.SIG SCH ×2 (10:16→11:19)
[2018-04-09] MEDS: amLODIPine 5 MG Tablet PO SCH (10:24)
--- NOTE | 2018-04-09 12:04 | P.PN ---
Subjective Interval history: Nursing denies any deterioration since last night. Patient says he was able to tolerate breakfast this morning without vomiting. Still has abdominal pain, says that the Dilaudid will help at times and then it will not. Has a flareup of gout on his right second toe which he says is not unusual for him. Physical Exam Vital signs: Vital Signs 04/08/18 12:07 04/08/18 12:33 04/08/18 13:06 Temperature Pulse Rate 78 78 73 Respiratory Rate 20 18 16 Blood Pressure 162/90 H 121/73 151/91 H Pulse Oximetry 97 95 95 04/08/18 14:22 04/08/18 15:00 04/08/18 16:00 Temperature 98.1 F Pulse Rate 82 74 Respiratory Rate 20 18 Blood Pressure 111/82 Pulse Oximetry 96 04/08/18 16:43 04/08/18 17:13 04/08/18 19:00 Temperature 97.9 F Pulse Rate 70 68 74 Respiratory Rate 16 Blood Pressure 166/96 H Pulse Oximetry 95 04/08/18 20:00 04/08/18 21:00 04/08/18 22:00 Temperature Pulse Rate 70 75 79 Respiratory Rate Blood Pressure Pulse Oximetry 04/08/18 23:00 04/09/18 00:00 04/09/18 01:00 Temperature 98 F Pulse Rate 84 71 76 Respiratory Rate 16 Blood Pressure 130/74 Pulse Oximetry 95 04/09/18 02:00 04/09/18 03:00 04/09/18 03:10 Temperature 97.9 F Pulse Rate 76 84 Respiratory Rate 16 Blood Pressure 161/83 H Pulse Oximetry 95 96 04/09/18 04:00 04/09/18 05:00 04/09/18 06:00 Temperature Pulse Rate 82 82 81 Respiratory Rate Blood Pressure Pulse Oximetry 04/09/18 07:00 04/09/18 08:00 04/09/18 09:00 Temperature 97.8 F Pulse Rate 78 77 68 Respiratory Rate 16 Blood Pressure 141/80 H Pulse Oximetry 95 04/09/18 10:00 Temperature Pulse Rate 68 Respiratory Rate Blood Pressure Pulse Oximetry Intake & Output 04/08/18 04/09/18 04/09/18 18:59 06:59 18:59 Intake Total 1100 / 1100 1720 / 1720 100 / 100 Output Total 125 / 125 Balance 1100 / 1100 1595 / 1595 100 / 100 Weight 96.162 kg 99.5 kg Intake: IV 1000 / 1000 1000 / 1000 100 / 100 NS Inj 1,000 ML @ 84 mls/hr IV. 1000 / 1000 CONT .[id number] [facility] Rx#:[id number] Magnesium Sulfate 1 gm/D5W 100 100 / 100 ml Premix 100 ML @ 100 mls/hr IV.SIG Q1H [facility] Rx#:[id number] NS Inj 1,000 ML @ Wide Open IV. 1000 / 1000 SIG BOLUS ONE Rx#:[id number] Oral 100 / 100 720 / 720 Output: Urine 125 / 125 Other: # Voids 3 Narrative: Heart sounds regular rate rhythm, no murmurs Clear lungs bilaterally, unlabored breathing Abdomen is soft, mildly tender to palpation diffusely, nondistended Right second toe is erythematous Results - Labs CBC & Chem 7: 04/09/18 02:52 04/09/18 02:52 Laboratory Results - last 24 hr 04/08/18 04/08/18 04/09/18 12:45 18:04 02:52 WBC RBC Hgb Hct MCV MCH MCHC RDW Plt Count MPV Neut % (Auto) Lymph % (Auto) [place] % (Auto) Eos % (Auto) Baso % (Auto) Neut # (Auto) Lymph # (Auto) [place] # (Auto) Eos # (Auto) Baso # (Auto) WBC Differential Differential Comment PT 11.0 INR 1.1 APTT 27.1 Sodium 133 L Potassium 3.1 L Chloride 97 L Carbon Dioxide 23.8 Anion Gap 12 BUN 11 Creatinine 1.56 H Estimated GFR 48 L POC Glucose Random Glucose 120 H Calcium 8.0 L D Phosphorus 2.9 Magnesium 1.3 L Total Bilirubin 1.1 H AST 62 H ALT 56 Alkaline Phosphatase 87 Troponin I 0.33 H 0.27 H Total Protein 7.2 D Albumin 3.4 D 04/09/18 04/09/18 04/09/18 02:52 07:50 09:55 WBC 6.0 RBC 3.61 L Hgb 14.5 D Hct 40.9 MCV 113.4 H MCH 40.2 H MCHC 35.5 RDW 13.4 Plt Count 174 MPV 8.2 Neut % (Auto) 66.1 Lymph % (Auto) 26.3 [place] % (Auto) 5.3 Eos % (Auto) 1.5 Baso % (Auto) 0.8 Neut # (Auto) 4.0 Lymph # (Auto) 1.6 [place] # (Auto) 0.3 Eos # (Auto) 0.1 Baso # (Auto) 0.0 WBC Differential . Differential Comment Auto diff final PT INR APTT Sodium Potassium Chloride Carbon Dioxide Anion Gap BUN Creatinine Estimated GFR POC Glucose 143 H Random Glucose Calcium Phosphorus Magnesium Total Bilirubin AST ALT Alkaline Phosphatase Troponin I 0.26 H Total Protein Albumin 04/09/18 11:10 WBC RBC Hgb Hct MCV MCH MCHC RDW Plt Count MPV Neut % (Auto) Lymph % (Auto) [place] % (Auto) Eos % (Auto) Baso % (Auto) Neut # (Auto) Lymph # (Auto) [place] # (Auto) Eos # (Auto) Baso # (Auto) WBC Differential Differential Comment PT INR APTT Sodium Potassium Chloride Carbon Dioxide Anion Gap BUN Creatinine Estimated GFR POC Glucose 228 H Random Glucose Calcium Phosphorus Magnesium Total Bilirubin AST ALT Alkaline Phosphatase Troponin I Total Protein Albumin - Imaging Impressions Liver Biopsy CT 04/08/18 00:00 CONCLUSION: 1. Uncomplicated CT guided biopsy. Assessment and Plan - Plan 48yM admitted with nausea vomiting abdominal pain possiblehypertensive emergency Hypertensive Urgency labetalol 300mg po q8h hydralazine 100mg po q8h Amlodipine added by cardiology Type II NSTEMI secondary to demand ischemia Elevated troponin - no symptoms concerning for ACS - no heparinization or ASA given plan for liver biopsy -Cardiology following Liver masses - CT guided biopsy performed yesterday, possible results in today versus tomorrow - if comes back malignant, will need staging CT chest/abd/pelvis - will hold on oncology consult until biopsy returns. likely can be outpatient work-up. Acute kidney injury Dehydration -improving Acute gout -Started on colchicine Nausea/Vomiting -Resolved Abdominal pain - secondary to liver masses -We will transition over from IV pain medication to oral today Tobacco abuse - counseled on cessation. Discharge Planning: STABLE FOR DC
[2018-04-10 03:14] VITALS: O2SAT 97
[2018-04-10] MEDS: HYDROmorphone PF Inj 2 MG/ML Vial IV.PUSH PRN (04:06)
[2018-04-10 05:01] LABS: Baso % (Auto) 0.2 % (0.0-2.0); Eos # (Auto) 0.1 th/mm3 (0.0-0.4); Eos % (Auto) 0.9 % (0.0-4.0); Hematocrit 38.2 % (39.0-51.0); Hemoglobin 13.6 gm/dL (13.0-17.0); Lymph # (Auto) 1.8 th/mm3 (1.0-4.8); Lymph % (Auto) 21.7 % (9.0-44.0); Mean Corpuscular HGB Conc 35.5 % (32.0-36.0); Mean Corpuscular Hemoglobin 40.3 pg (27.0-34.0); Mean Corpuscular Volume 113.4 fL (80.0-100.0); Mean Platelet Volume 8.5 fL (7.0-11.0); Mono # (Auto) 0.4 th/mm3 (0.0-0.9); Mono % (Auto) 4.8 % (0.0-8.0); Neut # (Auto) 5.9 th/mm3 (1.8-7.7); Neut % (Auto) 72.4 % (16.0-70.0); Platelet Count 160 th/mm3 (150-450); Red Blood Count 3.37 mil/mm3 (4.50-5.90); Red Cell Distribution Width 13.2 % (11.6-17.2); White Blood Count 8.1 th/mm3 (4.0-11.0)
[2018-04-10] MEDS: Sod Chloride 0.9% Inj 1,000 ML IV.CONT SCH (05:20)
[2018-04-10 05:43] LABS: Alanine Aminotransferase 39 U/L (12-78); Albumin 2.9 g/dL (3.4-5.0); Alkaline Phosphatase 78 U/L (45-117); Anion Gap 8 meq/L (5-15); Aspartate Aminotransferase 42 U/L (15-37); Blood Urea Nitrogen 10 mg/dL (7-18); Calcium 8.3 mg/dL (8.5-10.1); Carbon Dioxide 26.7 meq/L (21.0-32.0); Chloride 101 meq/L (98-107); Glomerular Filtration Rate 67 mL/min (>89); Glucose,Random 99 mg/dL (74-106); Magnesium 2.1 mg/dL (1.5-2.5); Phosphorus 2.8 mg/dL (2.5-4.9); Potassium 3.2 meq/L (3.5-5.1); Sodium 136 meq/L (136-145); Total Protein 6.6 g/dL (6.4-8.2)
[2018-04-10] MEDS: Heparin - SQ 10,000 UNITS/ML Vial SQ SCH (05:49)
[2018-04-10] MEDS: Insulin NovoLOG Aspart Correctional Sugar Inj SQ SCH (09:05)
[2018-04-10 09:06] VITALS: RESP 7
[2018-04-10] MEDS: amLODIPine 5 MG Tablet PO SCH (09:06)
[2018-04-10] MEDS: Sodium Chloride 0.9% 2 ML Flush BID IV.FLUSH SCH (09:06)
[2018-04-10 10:09] VITALS: BP 118/74; TEMP 97.8
[2018-04-10 10:10] VITALS: PULSE 68
--- NOTE | 2018-04-10 10:12 | P.DS ---
Date of admission: 04/08/18 11:36 Primary care physician: Payton Curtis Brief History from admission: 48yM with history of hypertension who presents with n/v/abd pain x 5 days. no hematemesis or hematochesia. in ER found to have sbp > 250. denies current chest pain, shortness of breath, fever, chills. On my evaluation he remained significantly hypertensive. I remained at bedside while he was given iv labetalol and iv hydralazine and his bp improved to 160s systolic. CT abd/ pelvis demonstrates multiple liver masses. Cr elevated. AST/ALT elevated. trop slightly elevated at 0.4. EKG no st-t-wave changes. remainder ROS unremarkable. DS: Medications - Discharge Medications Prescriptions: amlodipine [Norvasc] 5 mg PO DAILY #30 tab hydralazine 100 mg PO Q8H #90 tab hydrocodone-acetaminophen 1 tab PO Q6H PRN #28 tab PRN Reason: Acute Pain labetalol 300 mg PO Q8H #90 tab ondansetron [Zofran ODT] 4 mg PO Q6-8H PRN #12 tab PRN Reason: nausea/vomiting DS: Summary Hospital Course: Patient was initially admitted to the ICU due to significantly elevated systolic blood pressures around the 250s. He had slightly elevated troponins and cardiology help comanage his care namely improving his blood pressure, no vernell ACS symptoms were noted and no further cardiac workup was needed. His blood pressure was stabilized as well as his nausea and vomiting with antiemetics and IV fluids. He underwent CT-guided biopsy of his liver for suspected metastatic lesions. Discussed case with pathology would take 1-2 days at least to come back. Patient had an acute gouty flareup of his second right toe. Patient eventually tolerating p.o. intake well. Patient has met maximal benefit from hospitalization and is clinically stable for discharge. [employer] Prescription Drug Monitoring Database has been queried and verified prior to prescribing the controlled subsection. Patient is having significant pain caused by liver mass which will last more than 3 days. Trial of alternative treatment options other than prescribed opioids has not helped. I believe that it is medically necessary to treat the patients pain because it is affecting patients ability to return to baseline function. - Time Spent with Patient Total time spent providing and/or coordinating discharge services: Less than 30 minutes Exam Vital signs: Vital Signs 04/09/18 11:00 09/26/18 12:00 04/09/18 13:00 Temperature 98.7 F Pulse Rate 82 82 84 Respiratory Rate 16 Blood Pressure 143/76 H Pulse Oximetry 98 04/09/18 14:00 04/09/18 15:00 04/09/18 15:15 Temperature 98.5 F Pulse Rate 82 84 Respiratory Rate 16 Blood Pressure Pulse Oximetry 04/09/18 15:53 04/09/18 16:00 04/09/18 17:00 Temperature Pulse Rate 84 91 H Respiratory Rate 16 Blood Pressure Pulse Oximetry 04/09/18 18:00 04/09/18 19:00 04/09/18 20:00 Temperature 99 F Pulse Rate 93 H 82 81 Respiratory Rate 18 Blood Pressure 140/73 Pulse Oximetry 94 L 04/09/18 21:00 04/09/18 22:00 04/09/18 22:29 Temperature Pulse Rate 84 86 Respiratory Rate 18 Blood Pressure Pulse Oximetry 04/09/18 23:00 04/10/18 00:00 04/10/18 01:00 Temperature 98.2 F Pulse Rate 74 71 75 Respiratory Rate 20 Blood Pressure 117/61 Pulse Oximetry 95 04/10/18 01:10 04/10/18 02:00 04/10/18 03:00 Temperature 97.6 F Pulse Rate 71 84 Respiratory Rate 18 18 Blood Pressure 124/77 Pulse Oximetry 97 04/10/18 03:20 04/10/18 03:25 04/10/18 04:00 Temperature Pulse Rate 80 67 Respiratory Rate 18 Blood Pressure Pulse Oximetry 04/10/18 05:00 04/10/18 06:00 04/10/18 07:00 Temperature 97.8 F Pulse Rate 85 72 80 Respiratory Rate 18 Blood Pressure 118/74 Pulse Oximetry 97 04/10/18 08:00 04/10/18 09:00 04/10/18 09:05 Temperature Pulse Rate 89 72 Respiratory Rate 7 L Blood Pressure Pulse Oximetry 04/10/18 10:00 Temperature Pulse Rate 68 Respiratory Rate Blood Pressure Pulse Oximetry Intake & Output 04/09/18 04/10/18 04/10/18 18:59 06:59 18:59 Intake Total 200 / 200 1999 / 1999 1000 / 1000 Balance 200 / 200 1999 / 1999 1000 / 1000 Weight 99.5 kg Intake: IV 200 / 200 1999 1000 / 1000 NS Inj 1,000 ML @ 84 mls/hr IV. 1999 1000 / 1000 CONT .[id number] [facility] Rx#:[id number] Magnesium Sulfate 1 gm/D5W 100 100 / 100 ml Premix 100 ML @ 100 mls/hr IV.SIG Q1H [facility] Rx#:[id number] Other: Date of Last Bowel Movement 04/08/18 04/08/18 Narrative: Heart sounds regular rate and rhythm, no murmurs Clear lungs bilaterally, unlabored breathing Right second toe erythematous Results Procedures completed during hospitalization: CT-guided biopsy of liver mass Labs on day of discharge: Labs from last 24 hours 04/10/18 04/10/18 04/10/18 08:08 03:47 03:47 WBC 8.1 RBC 3.37 L Hgb 13.6 Hct 38.2 L MCV 113.4 H MCH 40.3 H MCHC 35.5 RDW 13.2 Plt Count 160 MPV 8.5 Neut % (Auto) 72.4 H Lymph % (Auto) 21.7 [place] % (Auto) 4.8 Eos % (Auto) 0.9 Baso % (Auto) 0.2 Neut # (Auto) 5.9 Lymph # (Auto) 1.8 [place] # (Auto) 0.4 Eos # (Auto) 0.1 Baso # (Auto) 0.0 WBC Differential . Differential Comment Auto diff final Sodium 136 Potassium 3.2 L Chloride 101 Carbon Dioxide 26.7 Anion Gap 8 BUN 10 Creatinine 1.16 Estimated GFR 67 L POC Glucose 133 H Random Glucose 99 Calcium 8.3 L Phosphorus 2.8 Magnesium 2.1 D Total Bilirubin 0.7 AST 42 H ALT 39 Alkaline Phosphatase 78 Troponin I Total Protein 6.6 D Albumin 2.9 L 04/09/18 04/09/18 04/09/18 20:03 20:01 17:21 WBC RBC Hgb Hct MCV MCH MCHC RDW Plt Count MPV Neut % (Auto) Lymph % (Auto) [place] % (Auto) Eos % (Auto) Baso % (Auto) Neut # (Auto) Lymph # (Auto) [place] # (Auto) Eos # (Auto) Baso # (Auto) WBC Differential Differential Comment Sodium Potassium Chloride Carbon Dioxide Anion Gap BUN Creatinine Estimated GFR POC Glucose 173 H 415 H 197 H Random Glucose Calcium Phosphorus Magnesium Total Bilirubin AST ALT Alkaline Phosphatase Troponin I Total Protein Albumin 09/26/18 09/26/18 11:10 09:55 WBC RBC Hgb Hct MCV MCH MCHC RDW Plt Count MPV Neut % (Auto) Lymph % (Auto) [place] % (Auto) Eos % (Auto) Baso % (Auto) Neut # (Auto) Lymph # (Auto) [place] # (Auto) Eos # (Auto) Baso # (Auto) WBC Differential Differential Comment Sodium Potassium Chloride Carbon Dioxide Anion Gap BUN Creatinine Estimated GFR POC Glucose 228 H Random Glucose Calcium Phosphorus Magnesium Total Bilirubin AST ALT Alkaline Phosphatase Troponin I 0.26 H Total Protein Albumin - Impressions ITS Impressions Liver Biopsy CT 04/08/18 00:00 CONCLUSION: 1[address] Uncom[address] CT guided biopsy. Abdomen/Pelvis CT 04/08/18 09:09 CONCLUSION: 1. Numerous hepatic masses ranging in size from subcentimeter to up to 5 cm in diameter near the dome of the left side. Primary differential diagnosis is metastatic disease but cannot exclude complex cystic masses. There is also some questionable mural thickening of the greater curvature of the stomach. Further evaluation with MRI abdomen is recommended. 2. No adenopathy. No pelvic masses are identified. Discharge Plan - Discharge Disposition Patient Disposition: 01 Discharge Home - Discharge Condition Condition: Fair - Discharge Order Discharge Orders: Discharge Order (Routine); Ordered 04/10/18 Ordered By: Sonido Kapoor - Physicians Team Primary Care Provider: Payton Curtis Attending Provider: Sonido Kapoor Other Providers: Tc Lynne MD
--- NOTE | 2018-04-14 14:30 | ECHRPT ---
Indication: hypertensive heart disease CONCLUSIONS Normal left ventricular size. Mild concentric left ventricular hypertrophy. The left ventricular systolic function is low normal with an estimated ejection fraction in the rang e of 50- 55%. Trace mitral valve regurgitation. There is trace tricuspid valve regurgitation. The estimated pulmonary arterial pressure is 19 mmHg. BP: / HR: Rhythm: MEASUREMENTS (Male / Female) Normal Values Technical Quality: 2D ECHO LV Diastolic Diameter PLAX 4.4 cm 4.2 - 5.9 / 3.9 - 5.3 cm LV Systolic Diameter PLAX 3.1 cm IVS Diastolic Thickness 1.3 cm 0.6 - 1.0 / 0.6 - 0.9 cm LVPW Diastolic Thickness 1.6 cm 0.6 - 1.0 / 0.6 - 0.9 cm LV Relative Wall Thickness 0.7 RV Internal Dim ED PLAX 2.9 cm LVOT Diameter 1.6 cm Aortic Root Diameter 3.1 cm LA Systolic Diameter LX 3.6 cm 3.0 - 4.0 / 2.7 - 3.8 cm LV Ejection Fraction MOD BP 42.2 % >= 55 % LV Ejection Fraction MOD 4C 44.6 % LV Ejection Fraction 4C AL 46.7 % LV Ejection Fraction MOD 2C 41.8 % LV Ejection Fraction 2C AL 43.7 % M-MODE Aortic Root Diameter MM 2.6 cm LA Systolic Diameter MM 4.1 cm LA Ao Ratio MM 1.6 AV Cusp Separation MM 1.9 cm DOPPLER AV Peak Velocity 191.5 cm/s AV Peak Gradient 14.7 mmHg AV Mean Gradient 7.0 mmHg AV Velocity Time Integral 31.9 cm LVOT Peak Velocity 99.6 cm/s LVOT Peak Gradient 4.0 mmHg LVOT Velocity Time Integral 14.4 cm AV Area Cont Eq vti 0.9 cm AV Area Cont Eq pk 1.0 cm Mitral E Point Velocity 74.5 cm/s Mitral A Point Velocity 76.0 cm/s Mitral E to A Ratio 1.0 LV E' Lateral Velocity 6.2 cm/s Mitral E to LV E' Lateral Ratio 11.9 LV E' Septal Velocity 5.5 cm/s Mitral E to LV E' Septal Ratio 13.6 TR Peak Velocity 151.0 cm/s TR Peak Gradient 9.1 mmHg Right Atrial Pressure 10.0 mmHg Pulmonary Artery Systolic Pressu 19.1 mmHg Right Ventricular Systolic Press 19.1 mmHg PV Peak Velocity 103.0 cm/s PV Peak Gradient 4.2 mmHg FINDINGS LEFT VENTRICLE Normal left ventricular size. Mild concentric left ventricular hypertrophy. The left ventricular systolic function is low normal with an estimated ejection fraction in the rang e of 50- 55%. RIGHT VENTRICLE Normal right ventricular size and systolic function. RIGHT ATRIUM The right atrial size is normal. ATRIAL SEPTUM Normal atrial septal thickness without atrial level shunting by limited color doppler interrogation. AORTA The aortic root and proximal ascending aorta are normal in size on limited imaging. MITRAL VALVE Trace mitral valve regurgitation. AORTIC VALVE Trileaflet aortic valve. No aortic valve stenosis or regurgitation. TRICUSPID VALVE There is trace tricuspid valve regurgitation. The estimated pulmonary arterial pressure is 19 mmHg. PULMONARY VALVE No pulmonary valve regurgitation or stenosis. VESSELS The inferior vena cava is normal in size. PERICARDIUM No pericardial effusion. Josh Engel MD, FACC, [facility] [place] (Electronically Signed) Final Date:14 April 2018 14:29
== END 2018-04-10 11:30 | disposition home or self-care (01) ==
LOC: NEPE 08:41 → NEDA 11:36 → HCPC 15:26
PROVIDERS: ADMIT Hospitalist; ATTEND Hospitalist